=== PATIENT | female | born 1975 | race Caucasian/White ===

== ENCOUNTER 2017-04-25 14:46 | Emergency (ER) | payer OTHER ==
[~2017-04-25] VITALS: Ht 165.1 cm; Wt 55.8 kg
[2017-04-25 14:59] VITALS: BP 135/80
== END 2017-04-25 15:39 | disposition left against medical advice (07) ==
LOC: ED 14:46
DX: Z53.21 Procedure and treatment not carried out due to patient leaving prior to being seen by health care provider (principal)